=== PATIENT | female | born 1960 | race Caucasian/White ===

== ENCOUNTER 2024-09-08 22:00 | Emergency (ER) | payer OTHER, SELFPAY ==
[2024-09-08 22:24] VITALS: BP 180/88; PULSE 85; RESP 20; TEMP 36.6; O2SAT 94
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
--- OUTSIDE RECORDS SUMMARY | 2024-09-08 23:53 | XMS_ITS | Clinical Summary ---
Author Organization [facility] [address] [place] [address] Care Team Providers Care Family Consumer Scientist Name Role Phone Lara Martínez NP Primary Care Provider [phone]- [phone] Allergies No known active allergies Medications clobetasoL (TEMOVATE) 0.05 % ointmentIndicat ions:Arthropod bite, initial encounter Apply topically 2 (two) times a day as needed (for itchy bites) 15 g 1 Active cyclobenzaprine (FLEXERIL) 10 mg tablet Take 1 tablet (10 mg total) by mouth 2 (two) times a day as needed for muscle spasms 20 tablet 4 Active naproxen (NAPROSYN) 500 mg tablet Take 1 tablet (500 mg total) by mouth 2 (two) times a day with meals 30 tablet 4 Active Active Problems No known active problems Social History Tobacco Use Types Packs/Day Years Used Date Smoking Tobacco: Every Day Smokeless Tobacco: Never Personal Safety Answer Date Recorded Have you ever been in or are you currently in a harmful physical or emotional relationship or is someone making you feel afraid or unsafe? 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 Gender Identity Female 09/05/2020 12:06 PM CDT Sexual Orientation Not on file Obstetrics History Last Filed Vital Signs Vital Sign Reading Time Taken Comments Blood Pressure 157/99 01/28/2024 11:47 AM CDT Pulse 63 01/28/2024 11:47 AM CDT Temperature 36.6 C (97.8 F) 01/28/2024 9:44 AM CDT Respiratory Rate 18 01/28/2024 11:47 AM CDT Oxygen Saturation 100% 01/28/2024 9:44 AM CDT Inhaled Oxygen Concentration - - Weight 73.5 kg (162 lb) 01/28/2024 9:44 AM CDT Height 162.6 cm (5' 4) 07/05/2018 10:30 AM CDT Body Mass Index 27.81 07/05/2018 10:30 AM CDT Plan of Treatment Health Maintenance Due Date Last Done Comments Breast Cancer Screening-Mammogram 1958 Colon Cancer Screening-Colonoscopy 1958 Depression Screening 1958 Fall Risk Assessment 1958 Hepatitis C Screening 1958 Osteoporosis Screening-Bone Density Scan 1958 DTaP/Tdap/Td Vaccine (1 - Tdap) 1969 Hepatitis B Screening 1976 Pneumococcal vaccine 65+ (1 of 2 - PCV) 1977 Zoster Vaccine (1 of 2) 2008 Well Visit 65+ 08/17/2023 Influenza Vaccine Completed 02/08/2024, , 01/14/2016 Insurance [facility] [employer] MEDICARE G[facility] [employer] MEDICARE GOLD Care Teams Family Consumer Scientist Relationship Specialty Start Date End Date Lara Martínez NP [address] [place] [id number] PCP - General Family Medicine 01/28/24
--- OUTSIDE RECORDS SUMMARY | 2024-09-08 23:53 | XMS_ITS | Referral Summary ---
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
--- OUTSIDE RECORDS SUMMARY | 2024-09-08 23:53 | XMS_ITS | Clinical Summary ---
Author Organization [facility] Address [address] [place] [address] Care Team Providers Care Merchandise Presentation Associate Name Role Phone Kerry Llanos PA-C Primary Care Provider [phone]- [phone] Source Comments [facility],non-owned Affiliates and Associated Physician Practices is amultiple site organization consisting of ambulatory clinics and hospital sitesin [place], [place], [place] and [place]. This disclosure is being madepursuant to the Care Everywhere program and may not contain all information available regarding this patient. Last updated 18.[facility] Allergies No known active allergies Medications * Be aware that medications may not be up to date on this document. Alwaysverify current medications with the patient. atenolol (Tenormin) 50 MG tablet Take 50 mg by mouth once daily 09/20/2021 Active lisinopril (Prinivil; Zestril) 10 MG tablet Take 10 mg by mouth once daily 09/30/2021 Active ALPRAZolam (Xanax) 0.5 MG tablet Take 0.5 mg by mouth once daily as needed 09/16/2021 Active nortriptyline (Pamelor) 10 MG capsuleIndicatio ns:Chronic tension-type headache, not intractable Take 1 (one) capsule by mouth at bedtime 90 capsule 3 11/18/2021 Active atenolol-chlorth alidone (Tenoretic 50) 50-25 MG tablet Acti ve lisinopril (Prinivil; Zestril) 20 MG tablet Take 20 mg by mouth once daily 11/11/2021 Active Active Problems Problem Noted Date Diagnosed Date Depressive disorder 05/16/2019 Insomnia 12/16/2018 Anxiety 11/04/2018 Arthritis 11/04/2018 Essential hypertension 11/04/2018 Heart murmur 11/04/2018 Nicotine dependence 11/04/2018 Immunizations Immunization Administration Dates Next Due INFLUENZA VACCINE, QUADR. (F LUZONE; FLULAVAL; FLUARIX; AFLURIA QUADRIVALENT; 6MO+), 0.5 ML (IIV4) 01/17/2019 Social History Tobacco Use Types Packs/Day Years Used Date Smoking Tobacco: Every Day Smokeless Tobacco: Never Alcohol Use Standard Drinks/Week Comments Never 0 (1 standard drink = 0.6 oz pur e alcohol) Comments Unknown Sex and Gender Information Value Date Recorded Sex Assigned at Not on file Legal Sex Female 9:51 AM CDT Gender Identity Not on file Sexual Orientation Not on file Last Filed Vital Signs Vital Sign Reading Time Taken Comments Blood Pressure 145/87 01/20/2022 7:45 AM CDT Pulse 71 01/20/2022 7:45 AM CDT Temperature 35.8 C (96.5 F) 01/20/2022 7:45 AM CDT Respiratory Rate - - Oxygen Saturation 97% 01/20/2022 7:45 AM CDT Inhaled Oxygen Concentration - - Weight 68 kg (150 lb) 01/20/2022 7:45 AM CDT Height 162.6 cm (5' 4) 01/20/2022 7:45 AM CDT Body Mass Index 25.75 01/20/2022 7:45 AM CDT Plan of Treatment Health Maintenance Due Date Last Done Comments BONE DENSITY TESTING 1960 COLOGUARD (AGES 45-75) - COL ON CA SCREENING 1958 COLON MONITORING 1958 COLONOSCOPY - COLON CA SCREENING 1958 CT COLONOGRAPHY - COLON CA SCREENING 1958 Colorectal Cancer Screening 1958 FIT - COLON CA SCREENING 1958 FLEX SIG - COLON CA SCREENING 1958 LIPID TESTING 1958 MAMMOGRAM 1958 HEPATITIS C SCREENING 08/11/1976 DTAP/TDAP/TD VACCINES (1 - Tdap) 1977 PNEUMOCOCCAL VACCINE 50+ (1 of 2 - PCV) 1977 ZOSTER VACCINE (1 of 2) 2008 SCREENING FOR DIABETES 11/18/2021 COVID-19 VACCINE ( - 2023-2 5 season) 2023 DEPRESSION SCREENING 04/13/2024 INFLUENZA VACCINE (Season Ended) 2024 01/18/20 Respiratory Syncytial Virus (RSV) Vaccine Pt: or over 60 yrs (1 - 1-dose 75+ series) 2033 HEPATITIS B VACCINE Aged Out No longe r eligible based on patient's age to complete this topic HIB VACCINE Aged Out No longer eligi ble based on patient's age to complete this topic HPV VACCINE Aged Out No longer eligi ble based on patient's age to complete this topic MENINGOCOCCAL (Group B) VACC INE SHARED DECISION-MAKING Aged Out No longer eligibl e based on patient's age to complete this topic MENINGOCOCCAL GROUPS A/C/Y/W VACCINE Aged Out No longer eligible b ased on patient's age to complete this topic Insurance [facility] Care Teams Merchandise Presentation Associate Relationship Specialty Start Date End Date Kerry Llanos PA-C [address] [place] [address] PCP - General 10/22/21
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
--- OUTSIDE RECORDS SUMMARY | 2024-09-08 23:54 | XMS_ITS | Data Portability ---
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 Plan of Treatment Reminders Order Date Submit Date Provider Last Modified By Organization Details Last Modified Time Details Appointments NURSE VISIT 15 2024 01:15P M DIPC_Nurs e Not available Not available Not available EST 30 2024 02:00P M Roman Carroll PA Not available Not available Not available Lab CMP, serum or plasma 2024 025 [facility], [address], [place], [address], 09/08/2024 05:45:45 CBC w/ auto diff 2024 025 [facility], [address], [place], [address], 09/08/2024 05:45:46 vitamin D, 25-hydrox y, total, serum 2024 025 [facility], [address], [place], [address], 09/08/2024 05:45:45 lipid panel, serum 2024 025 [facility], [address], [place], [address], 09/08/2024 05:45:44 hepatic function panel, serum 2024 025 [facility], [address], [place], [address], 09/07/2024 04:07:22 Referral None recorded. Procedures None recorded. Surgeries None recorded. Imaging US, kidney 2024 025 [facility], [address] [facility], [facility] [address], [place], [address], 08/26/2024 16:23:22 MAMMO, screening , bilateral 2024 025 [facility], [address] [facility], [facility] [address], [place], [address], 08/26/2024 16:27:48 LDCT, chest, for lung cancer screening [email or web address] (Central Scheduling), [address] [place], [address], 08/19/2024 11:02:12 Medication Orders Medrol ([place]) 4 mg tablets in a dose pack 2024 025 [id number], [address] [place], [address], 2024 14:54:57 methocarb ronny 500 mg tablet 2024 025 [id number], [address], [place], [address], 2024 14:56:02 losartan 100 mg tablet 2024 025 [id number], [address] [place], [address], 08/11/2024 00:15:29 alprazola m 0.5 mg tablet 2024 025 [id number], [address], [place], [address], 05/17/2024 14:39:22 sertralin e 50 mg tablet 2024 025 [id number], [address], [place], [address], 05/17/2024 14:39:20 Patient TargetsNo targets recorded. Patient Instructions Encounter Date Encounter Id Patient Instructions Last Modified By Organization Details Last Modified Time 05/17/2024 [id number] dash diet: care instructions Not available 05/17/2024 15:31:39 high blood pressure: care instructions Not available 05/17/2024 15:31:39 learning about high blood pressure Not available 05/17/2024 15:31:39 low sodium diet (2,000 milligram): care instructions Not available 05/17/2024 15:31:39 Reason for Referral None Reported. Results Created Date Observation Date Name Description Value Unit Range Abnormal Flag Note LastModifiedBy Organization Detail LastModifiedTime 09/08/1909/08/2024 LIPID PANEL , STAND CHAN cholesterol, total 172 mg/dL <200 normal Not Available [facility] [address], [address], 09/08/2024 05:45:44 09/08/19 25 09/08/2024 LIPID PANEL , STAND CHAN HDL cholesterol 60 mg/dL > or = 50 normal Not Available [facility] [address] [place], [place] [address], [address], 09/08/2024 05:45:44 09/08/19 25 09/08/2024 LIPID PANEL , STAND CHAN triglyceride s 109 mg/dL <150 normal Not Available [facility] [address] [place], [place] [address], [address], 09/08/2024 05:45:44 09/08/19 25 09/08/2024 LIPID PANEL , STAND CHAN LDL-choleste rol 91 mg/dL _(yessi c) normal Refer ence range : <100 Tr able range <100 mg/dL for prima ry preve ntion ; <70 mg/dL for patie nts with CHD or diabe tic patie nts with > or = 2 CHD risk facto rs. LDL-C is now calcu lated using the Maalthi n-Hop kins calcu guille n, which is a valid ated novel metho d provi ding fabienne r accur acy than the Fried tiffany equat ion in the estim ation of LDL-C . Malathi morrow SS et al. BONY. 2013; 310(1 9): 2061- 2068 (http ://ed ucati on.Qu Teal Orbit. com/f aq/FA Q164) Not Available [facility] [address] [address] [place], [address], 09/08/2024 05:45:44 09/08/1909/08/2024 LIPID PANEL , STAND CHAN chol/HDLC ratio 2.9 (calc ) <5.0 normal Not Available [facility] [address] [address] [place], [address], 09/08/2024 05:45:44 09/08/1909/08/2024 LIPID PANEL , STAND CHAN non HDL cholesterol 112 mg/dL _(yessi c) <130 normal For patie nts with diabe heriberto plus 1 major ASCVD risk facto r, treat ing to a non-H DL-C goal of <100 mg/dL (LDL- C of <70 mg/dL ) is consi dered a thera peuti c optio n. Not Available [facility] [address] [address] [address] , [place], [address], 09/08/2024 05:45:44 09/08/1909/08/2024 COMPR EHENS KAYE METAB OLIC PANEL glucose 85 mg/dL 65-99 normal Fasti ng refer ence inter ronel Not Available [facility] [address] [address] [place], [address], 09/08/2024 05:45:45 09/08/192025 COMPR EHENS KAYE METAB OLIC PANEL urea nitrogen (BUN) 20 mg/dL 7-25 normal Not Available [address], [address], 09/08/2024 05:45:45 09/08/19 25 09/08/2024 COMPR EHENS KAYE METAB OLIC PANEL creatinine 1.11 mg/dL 0.50-1 .05 high Not Available [address], [address], 09/08/2024 05:45:45 09/08/19 25 09/08/2024 COMPR EHENS KAYE METAB OLIC PANEL eGFR 55 mL/mi n/1.7 3m2 > or = 60 low Not Available [address], [address], 09/08/2024 05:45:45 09/08/19 25 09/08/2024 COMPR EHENS KAYE METAB OLIC PANEL BUN/creatini ne ratio 18 (calc ) 6-22 normal Not Available [address], [address], 09/08/2024 05:45:45 09/08/19 25 09/08/2024 COMPR EHENS KAYE METAB OLIC PANEL sodium 139 mmol/ L 135-14 6 normal Not Available [address], [address], 09/08/2024 05:45:45 09/08/19 25 09/08/2024 COMPR EHENS KAYE METAB OLIC PANEL potassium 4.2 mmol/ L 3.5-5. 3 normal Not Available [address], [address], 09/08/2024 05:45:45 09/08/19 25 09/08/2024 COMPR EHENS KAYE METAB OLIC PANEL chloride 103 mmol/ L 98-110 normal Not Available [address] [place], [address], 09/08/2024 05:45:45 09/08/19 25 09/08/2024 COMPR EHENS KAYE METAB OLIC PANEL carbon dioxide 26 mmol/ L 20-32 normal Not Available [address], [address], 09/08/2024 05:45:45 09/08/19 25 09/08/2024 COMPR EHENS KAYE METAB OLIC PANEL calcium 9.1 mg/dL 8.6-10 .4 normal Not Available [address], [address], 09/08/2024 05:45:45 09/08/19 25 09/08/2024 COMPR EHENS KAYE METAB OLIC PANEL protein, total 7.0 g/dL 6.1-8. 1 normal Not Available [address], [address], 09/08/2024 05:45:45 09/08/19 25 09/08/2024 COMPR EHENS KAYE METAB OLIC PANEL albumin 4.1 g/dL 3.6-5. 1 normal Not Available [address], [address], 09/08/2024 05:45:45 09/08/19 25 09/08/2024 COMPR EHENS KAYE METAB OLIC PANEL globulin 2.9 g/dL_ (calc ) 1.9-3. 7 normal Not Available [address], [address], 09/08/2024 05:45:45 09/08/19 25 09/08/2024 COMPR EHENS KAYE METAB OLIC PANEL albumin/glob ulin ratio 1.4 (calc ) 1.0-2. 5 normal Not Available [address], [address], 09/08/2024 05:45:45 09/08/1909/08/2024 COMPR EHENS KAYE METAB OLIC PANEL bilirubin, total 0.6 mg/dL 0.2-1. 2 normal Not Available [place] [address] [address] [place], [address], 09/08/2024 05:45:45 09/08/1909/08/2024 COMPR EHENS KAYE METAB OLIC PANEL alkaline phosphatase 99 U/L 37-153 normal Not Available [facility] [address] [address] [place], [address], 09/08/2024 05:45:45 09/08/1909/08/2024 COMPR EHENS KAYE METAB OLIC PANEL AST 13 U/L 10-35 normal Not Available [address] [address] [place], [address], 09/08/2024 05:45:45 09/08/1909/08/2024 COMPR EHENS KAYE METAB OLIC PANEL ALT 8 U/L 6-29 normal Not Available [address] [address] [place], [address], 09/08/2024 05:45:45 09/08/1909/08/2024 VITAM IN D,25- OH,TO NIKKI,I A vitamin D,25-oh,tota l,ia 20 NG/mL 30-100 low Vitam in D Statu s 25-OH Vitam in D: Defic iency : <20 ng/mL Insuf ficie ncy: 20 - 29 ng/mL Optim al: > or = 30 ng/mL For 25-OH Vitam in D testi ng on patie nts on D2-alcala pplem entat ion and patie nts for whom quant itati on of D2 and D3 fract ions is requi red, the [facility] Ass[employer] eD(TM ) 25-OH VIT D, (D2,D 3), LC/MS /MS is recom ulca d: order code 62690 (gloria ents >2yrs ). See Note 1 Note 1 For addit ional infor jenny matthews e refer to http: //bala Wren gnost ics.c om/fa q/FAQ 199 (This link is being provi ded for infor michael neely/ isabella fragosoo ses only. ) Not Available [address], [address], 09/08/2024 05:45:45 09/08/1909/08/2024 CBC (INCL UDES DIFF/ PLT) white blood cell count 6.6 thous and/u L 3.8-10 .8 normal Not Available [address], [address], 09/08/2024 05:45:45 09/08/1909/08/2024 CBC (INCL UDES DIFF/ PLT) red blood cell count 4.87 caterina on/uL 3.80-5 .10 normal Not Available [address], [address], 09/08/2024 05:45:45 09/08/19 25 09/08/2024 CBC (INCL UDES DIFF/ PLT) hemoglobin 14.6 g/dL 11.7-1 5.5 normal Not Available [address], [address], 09/08/2024 05:45:45 09/08/1909/08/2024 CBC (INCL UDES DIFF/ PLT) hematocrit 44.7 % 35.0-4 5.0 normal Not Available [address], [address], 09/08/2024 05:45:45 09/08/19 25 09/08/2024 CBC (INCL UDES DIFF/ PLT) MCV 91.8 fL 80.0-1 00.0 normal Not Available [address], [address], 09/08/2024 05:45:45 09/08/1909/08/2024 CBC (INCL UDES DIFF/ PLT) MCH 30.0 pg 27.0-3 3.0 normal Not Available [address], [address], 09/08/2024 05:45:45 09/08/19 25 09/08/2024 CBC (INCL UDES DIFF/ PLT) MCHC 32.7 g/dL 32.0-3 6.0 normal For adult s, a sligh t decre ase in the calcu lated MCHC value (in the range of 30 to 32 g/dL) is most likel y not clini michela signi eliezer t; rashi er, it shoul d be inter prete d with cauti on in [facility] with other red cell shar eters and the patie nt's clini yessi condi tion. Not Available [address], [address], 09/08/2024 05:45:45 09/08/1909/08/2024 CBC (INCL UDES DIFF/ PLT) RDW 13.3 % 11.0-1 5.0 normal Not Available [address], [address], 09/08/2024 05:45:45 09/08/1909/08/2024 CBC (INCL UDES DIFF/ PLT) platelet count 240 thous and/u L 140-40 0 normal Not Available [address], [address], 09/08/2024 05:45:45 09/08/19 25 09/08/2024 CBC (INCL UDES DIFF/ PLT) MPV 9.3 fL 7.5-12 .5 normal Not Available [address], [address], 09/08/2024 05:45:45 09/08/1909/08/2024 CBC (INCL UDES DIFF/ PLT) absolute neutrophils 3656 cells /uL 1500-7 800 normal Not Available [address], [address], 09/08/2024 05:45:45 09/08/1909/08/2024 CBC (INCL UDES DIFF/ PLT) absolute lymphocytes 1927 cells /uL 850-39 00 normal Not Available [address], [address], 09/08/2024 05:45:45 09/08/1909/08/2024 CBC (INCL UDES DIFF/ PLT) absolute monocytes 515 cells /uL 200-95 0 normal Not Available [address], [address], 09/08/2024 05:45:45 09/08/1909/08/2024 CBC (INCL UDES DIFF/ PLT) absolute eosinophils 449 cells /uL 15-500 normal Not Available [address], [address], 09/08/2024 05:45:45 09/08/1909/08/2024 CBC (INCL UDES DIFF/ PLT) absolute basophils 53 cells /uL 0-200 normal Not Available [address], [address], 09/08/2024 05:45:45 09/08/1909/08/2024 CBC (INCL UDES DIFF/ PLT) neutrophils 55.4 % normal Not Available [address], [address], 09/08/2024 05:45:45 09/08/1909/08/2024 CBC (INCL UDES DIFF/ PLT) lymphocytes 29.2 % normal Not Available [address], [address], 09/08/2024 05:45:45 09/08/1909/08/2024 CBC (INCL UDES DIFF/ PLT) monocytes 7.8 % normal Not Available [facility] [place] [address] [place], [address], 09/08/2024 05:45:45 09/08/19 25 09/08/2024 CBC (INCL UDES DIFF/ PLT) eosinophils 6.8 % normal Not Available [facility] [address] [place] [address] [place], [address], 09/08/2024 05:45:45 09/08/19 25 09/08/2024 CBC (INCL UDES DIFF/ PLT) basophils 0.8 % normal Not Available [facility] [address] [address] [place], [address], 09/08/2024 05:45:45 08/12/19 25 08/10/2024 US, echoc ardio gram, trans thora cic, compl ete, w/ color flow No observ ation record ed. [email or web address] Roman Carroll PA-C [address], [address], 08/11/2024 11:55:01 08/27/19 25 08/26/2024 MAMMO , scree mat, bilat eral No observ ation record ed. [email or web address] [place], [address], 08/30/2024 16:27:52 08/27/19 25 08/26/2024 US, khadra fleming No observ ation record ed. [email or web address] [place], [address], 08/30/2024 16:27:52 Result Notes None recorded. Problems Name Problem SNOMED Code Status Onset Date Resolution Date Notes Provider Name and Address Organization Details Recorded Time Smoker 65113294 Active 2022 Kerry Haq LPN [facility] 11:09:14 Chronic obstructi ve pulmonary disease 67428417 Active 2022 Lara Cantu NP [address] [facility],[address], [place], [address] , [facility] 3 13:28:30 Gastroeso phageal reflux disease without esophagit is 698460299 Active 2022 Lara Cantu NP [address] [facility],[address], [place], [address] , [facility] 4 16:34:59 Left ventricul ar diastolic dysfuncti on 938218182 Active 2023 Follows Cardio Lara Cantu NP [address], [place], [address] , [facility] 4 16:34:44 Osteoporo sis 47466355 Active 2023 Lara Cantu NP [address], [place], [address] , [facility] 4 13:16:17 Small vessel cerebrova scular disease 358839720 Active 2023 Referred to Neuro Lara Cantu NP [address], [place], [address] , [facility] 4 21:11:22 Renal mass 235953374 Active 2023 Lara Cantu NP [address], [place], [address] , [facility] 4 14:07:13 Prolapsed lumbar intervert ebral disc 726316539 Active 2023 Lara Cantu NP [address], [place], [address] , [facility] 5 14:23:03 Mixed hyperlipi demia 378779842 Active 2024 Lara Cantu NP [address] [facility],[address], [place], [address] , [facility] 5 14:22:52 Disorder of left sciatic nerve 96200130402 9100 Active 2024 Lara Cantu NP [address], [place], [address] , [facility] 5 14:54:17 Tobacco dependenc e caused by cigarette s 74480487756 181526 Active 2024 Janiya nguyen, [facility] 5 10:55:04 Insomnia 216642499 Active 2018 Lara Cantu NP [address], [place], [address] , [facility] 3 14:02:38 Vitamin D deficienc y 50782389 Active 2021 Lara Cantu NP [address], [place], [address] , [facility] 3 14:02:43 Arthritis 7036947 Active 2018 Lara Cantu NP [address], [place], [address] , [facility] 3 14:02:32 Anxiety 41524892 Active 2018 Lara Cantu NP [address] [place] [address], [place], [address] , [facility] 3 14:01:59 Essential hypertens ion 75452457 Active 2018 Martina nguyen, [facility] 5 12:18:34 Chronic depressio n 983901519 Active 2020 Lara Cantu NP [address], [place], [address] , [facility] 3 14:01:57 Notes:Dx w/CHF in 2000 [facility]. No problem since. Problem Notes Documentation Provider Name and Address Organization Details Recorded Time Utility Accounts Director Consult Note : [address] [address]QKSJ, Vickie (id #[id number], : 1960) [facility] [address] [address] Encounter Summary - Progress Note Date Printed: 08/10/2024 Documents sent via fax will include the followingmessage: This fax may contain sensitive and confidential personal health information that is being sent for the sole use of the intended recipient. Unintended recipients are directed to securely destroy any materials received. You are hereby notified that the unauthorized disclosure or other unlawful use of this fax or any personal health information is prohibited. To the extent patient information contained in this fax is subject to 42 CFR Part 2, this regulation prohibits unauthorized disclosure of these records. If you received this fax in error, please visit [email or web address] to notify the sender and confirm that the information will be destroyed. If you do not have internet access, please call to notify the sender and confirm that the information will be destroyed. Thank you for your attention and cooperation. [ID:[id number]] Patient Irene Cason (63yo, F) #[id number] 1960 Patient Demographics: Address [address] [place] [address] Work Phone Encounter Notes: Encounter Reason/Date 1 year follow up, f/u after ECHO 08/10/2024 - 03:00PM - [facility] [place] History of Present IllnessIrene is a very pleasant 63 y/o WF with history of HTN, hyperlipidemia, tobacco use, GERD and a family history of heart disease, who returns to the office today for annual visit and a scheduled echocardiogram. She feels well and denies chest pain, SOB, dizziness, pre-syncope, pedal edema or claudication symptoms. Review of Systems Patient reports no chest pressure, no lightheadedness, no chest pain, no dyspnea on exertion, no fatigue, no leg edema, no syncope, no orthopnea, no palpitations, no PND, no shortness of breath, and no claudication. Vitals BP: 160/90 sitting R arm08/10/2024 03:00 pm BMI: 25. 02:46 pm HR: 70008/10/2024 02:59 pm Ht: 5 ft 4.5 in (163.83 cm)08/10/2024 02:42 pm O2Sat: 97% Room Air at Rest08/10/2024 02:59 pm RR: 17008/10/2024 02:59 pm T: 97.1 F temporal artery (36.17 C)08/10/2024 02:59 pm Wt: 149 lbs With clothes (67.59 kg)08/10/2024 02:46 pm Results/InterpretationsNone recorded Physical ExamConstitutional:General Appearance: well-nourished and well-developed. Level of Distress: no acute distress. Psychiatric:Mental Status: alert and normal affect. Orientation: to time, place, and person. Insight: good insight. Eyes:Lids and Conjunctivae: no discharge, pallor, xanthelasma, or arcus senilis and non-injected and anicteric. ENMT:Lips, Teeth, and Gums: normal dentition and moist oral mucosa. Ears: no lesions on external ear. Nose: no lesions on external nose and nares patent. Oropharynx: no cyanosis or pallor. Neck:Neck: supple, trachea midline, no masses, and full range of motion. Carotid Arteries: no bruits or thrills and bilateral normal upstroke. Jugular Veins: normal jugular venous pressure and Kussmaul's sign absent. Cervical Lymph Nodes: non tender or not enlarged. Thyroid: not enlarged. Lungs:Respiratory Effort: unlabored. Chest Exam: no thoracic deformity or chest wall tenderness and normal curvature. Auscultation: no wheezes, rales, or rhonchi and clear to auscultation bilaterally. Cardiovascular:Precordial Exam: no heaves or precordial thrills and non displaced point of maximal impulse. Rate And Rhythm: regular. Heart Sounds: normal S1 and S2; no rub, gallop, or click; and physiologically split S2. Systolic Murmur: not heard. Diastolic Murmur: not heard. Extremities: no cyanosis, edema, or peripheral signs of emboli. Abdomen:Inspection and Palpation: non distended or tender and soft and no masses. Liver: non tender or no hepatomegaly. Spleen: non tender or no splenomegaly. Musculoskeletal:Inspection: no joint tenderness or swelling and no erythema. Neurologic:Gait: normal gait. Motor: normal strength and tone. Sensation no lateralizing focal sensory or motor deficits and normal speech. Skin:Inspection and Palpation: warm and dry. Nails: no clubbing or splinter hemorrhages. Assessment and Plan1. Essential hypertension-Her BP is elevated again today. Meds were reviewed. I recommend increasing losartan to 100mg daily and continuing the atenolol 50mg daily. Her echo did not suggest evidence of LVH. She will continue home monitoring her BP at home and report persistent abnormal readings. She has a follow up soon with Lara. We will regroup in November to discuss her regimen and readings.I10: Essential (primary) hypertension losartan 100 mg tablet - Take 1 tablet(s) every day by oral route. Qty: (90) tablet Refills: 3 Pharmacy: [facility][id number] Note to Pharmacy: Replacing 50mg dose. 2.Mixed hyperlipidemiaHer LDL was previously elevated. She is managed with dietary discretion. Recommend follow up liver and lipid panel. She is seeing Lara soon. I suggested she wait until after that appointment as Lara would likely add to her lab orders, and she could have them all drawn at once.E78.2: Mixed hyperlipidemia LIPID PANEL, STANDARD HEPATIC FUNCTION PANEL 3. Intermittent palpitations-Intermittent palpitations have resolved. Her previous holter was reviewed. No concerning arrhythmias.R00.2: Palpitations 4. Dyspnea on exertion-Previous LDCT was negative and did not reveal evidence of coronary calcification.R06.09: Other forms of dyspnea 5. Family history of Cardiovascular disease-Mother developed CAD age 40's to 50's, Father with COPD, Brother with cancer and cirrhosis. Anticipate repeat MPI study at some point.Z82.49: Family history of ischemic heart disease and other diseases of the circulatory system 6. Gastroesophageal reflux disease-Stable on pantoprazole 40mg daily.K21.9: Gastro-esophageal reflux disease without esophagitis 7.SmokerDiscussed benefits of quitting smoking. Cessation was encouraged.F17.200: Nicotine dependence, unspecified, uncomplicated 8.BMI 25.0-25.9,adultBmi 25 Recommended weight loss to achieve & maintain WNL BMI by focusing on increasing water intake, exercise regularly, limit fatty, fried, salty/sodium, & processed foods, increase intake of fresh produce, f/u with pcp.Z68.25: Body mass index [BMI] 25.0-25.9, adult Return to Office Roman LAND for EST 30 at [facility]P_ [facility] [place] on 11/14/2024 at 02:00 PM Patient Medical History: Allergies List Reviewed Allergies HYDROCHLOROTHIAZIDE: Hives Medications Reviewed Medications NameDate Source albuterol sulfate HFA 90 mcg/actuation aerosol inhalerInhale 2 puff(s) every 4 hours by inhalation route as needed.04/03/24 filled surescripts alendronate 70 mg tabletTAKE 1 TABLET BY MOUTH EVERY WEEK01/10/24 filled surescripts ALPRAZolam 0.5 mg tabletTAKE 1 TABLET BY MOUTH EVERY DAY JJWWEQ37/04/25 filled surescripts aspirin 81 mg tablet,delayed releaseTake 1 tablet(s) every day by oral route.03/13/23 entered Brooklyn Loera atenoloL 50 mg tabletTAKE 1 TABLET BY MOUTH EVERY DAY07/03/24 filled surescripts Breztri Aerosphere 160 mcg-9mcg-4.8mcg/actuation HFA aerosol inhalerINHALE 2 PUFFS TWICE A DAY08/18/23 filled surescripts cetirizine 10 mg tabletTAKE 1 TABLET BY MOUTH EVERY DAY05/26/24 filled surescripts fluticasone propionate 50 mcg/actuation nasal spray,suspensionONE SPRAY IN EACH NOSTRIL EVERY NIGHT BEFORE BED.05/26/24 filled surescripts ketorolac 0.5 % eye dropsINSTILL 1 DROP INTO RIGHT EYE 4 TIMES DAILY STARTING AFTER SURGERY AND CONTINUE FOR 4 WEEKS07/06/24 filled surescripts losartan 100 mg tabletTake 1 tablet(s) every day by oral route.08/10/24 prescribed Roman LAND losartan 50 mg tabletTAKE 1 TABLET BY MOUTH EVERY DAY06/07/24 filled surescripts loteprednol etabonate 0.5 % eye gel dropsINSTILL 1 DROP INTO RIGHT EYE TWICE DAILY STARTING 4 HOURS AFTER SURGERY AND CONTINUE FOR 4 WEEKS07/06/24 filled surescripts ofloxacin 0.3 % eye dropsINSTILL 1 DROP IN RIGHT EYE 4 TIMES DAILY STARTING AFTER SURGERY AND CONTINUE FOR 1 WEEK07/06/24 filled surescripts pantoprazole 40 mg tablet,delayed releaseTAKE 1 TABLET BY MOUTH EVERY DAY12/16/23 filled surescripts Refresh Classic (PF) 1.4 %-0.6 % eye drops in a fpdwsgjeedg07/30/25 entered Kerry Haq [employer] sertraline 50 mg tabletTAKE 1 TABLET BY MOUTH EVERY DAY05/17/24 filled surescripts Meds UTD 07/25/22 Family HistoryReviewed Family History Father - Hypertensive disorder - Dementia - Pulmonary emphysema - Pneumonia ( age: 86) Mother - Hypertensive disorder - Heart disease Brother - Malignant tumor of kidney - Mesothelioma (malignant, clinical disorder) - Malignant tumor of kidney - Mesothelioma (malignant, clinical disorder) - Malignant tumor of kidney - Mesothelioma (malignant, clinical disorder) Past Medical HistoryReviewed Past Medical History ANXIETY DISORDER:Y ARTHRITIS:Y COPD:Y DEPRESSION (INCLUDING POST ):Y GERD/NAUSEA:Y HEART DISEASE:Y-LVDD HYPERTENSION:Y INSOMNIA:Y SLEEP DISORDER:Y Vaccine HistoryReviewed Vaccines Vaccine Type Date Amt. Route Site [facility] Lot # [id number]. Exp. Date VIS VIS Given Roller Engraver Hepatitis A Hep A 05/13/24 Z27PB Hep A, adult 09/24/23 Influenza influenza, high dose seasonal 02/08/24 0.5 mL Intramuscular Deltoid, Left [id number] Sanofi Pasteur 09/11/24 Inactivated Influenza 11/16/2020 02/08/24 Brooklyn Loera influenza, injectable, quadrivalent, preservative free 01/17/19 0.5 mL Intramuscular Deltoid, Left [id number] [employer] 08/31/19 11/25/2018 01/17/19 [email or web address] Pneumococcal Pneumococcal conjugate PCV20, polysaccharide [id number] conjugate, adjuvant, PF 08/17/23 0.5 mL Intramuscular Deltoid, Left [id number] Pfizer, Inc 09/10/24 Pneumococcal Conjugate 08/22/2022 08/17/23 Nevaeh Coppola last tdap unknown Electronically Signed by: MARTIN BLANCA Lara Catnu, JERRY [address], [place], [address], [facility] 08/11/2024 14:02:43 Procedures Surgical History Date Name Laterality Status Provider Name and Address Organization Details Recorded Time 08/09/19 25 Cataract Surgery completed Kerry Haq LPN [facility] 08/10/2024 15:58:00 07/26/19 25 Cataract Surgery completed Kerry Haq LPN [facility] 08/10/2024 15:57:55 02/08/20 24 Medicare Wellness CPT, welcome completed Lara Cantu NP [address], [place], [address], [facility] 01/11/2024 10:55:11 08/24/19 24 Most Recent Bone Density completed Lara Cantu NP [address], [place], [address], [facility] 08/25/2023 13:16:31 02/18/20 23 Date of Last Mammogram completed Lara Cantu NP [address], [place], [address], [facility] 08/17/2023 12:02:22 12/17/19 01 Hysterectomy completed Not Available [facility] 023 02:24:13 04/13/19 thoracentesis completed Not Available [facility] 2022 02:24:13 section completed Not Available [facility] 04/20/2022 02:24:13 tonsillectomy and adenoidectomy completed Not Available [facility] 04/20/2022 02:24:13 removal of mole of skin by excision completed Not Available [facility] 04/20/2022 02:24:13 Imaging Results None recorded. Procedure Notes None recorded. Medical Equipment None Reported. Allergies Allergen ID Allergen Name Allergen Category Reaction Reaction Severity Criticality Documentation Date Start Date Code Code System Note Provider Name and Address Organization Details Recorded Time [id number] hydrochlo rothiazid e medicatio n hives Not available Not available 04/20/2022 5487 RxNorm Not Available [facility] 3 02:27:24 Medications Name Sig Start Date Stop Date Status Note LastModified by Organization Details LastModified Time losartan 50 mg tablet TAKE 1 TABLET BY MOUTH EVERY DAY 08/16 completed Not Available Not Available Not Available cyclobenzap rine 10 mg tablet TAKE 1 TAB BY MOUTH TWO TIMES DIALY NEEDED FOR MUSCLE SPASMS 05/17 completed Not Available Not Available Not Available methocarbam ol 500 mg tablet TAKE 2 TABLETS 3 TIMES A DAY BY ORAL ROUTE NEEDED FOR 7 DAYS. active Not Available Not Available No t Available venlafaxine ER 37.5 mg capsule,ext ended release 24 hr TK 1 C PO QD 10/09 completed Not Available Not Available Not Available trazodone 50 mg tablet TK 1 T PO 30 MINUTES BEFORE BEDTIME 10/09 completed Not Available Not Available Not Available cetirizine 10 mg tablet TAKE 1 TABLET BY MOUTH EVERY DAY active Not Available Not Available No t Available azithromyci n 250 mg tablet TAKE 2 TABLETS (500 MG) BY ORAL ROUTE ONCE DAILY FOR 1 DAY THEN 1 TABLET (250 MG) BY ORAL ROUTE ONCE DAILY FOR 4 DAYS 06/13 completed Not Available Not Available Not Available ofloxacin 0.3 % eye drops INSTILL 1 DROP IN RIGHT EYE 4 TIMES DAILY STARTING AFTER SURGERY AND CONTINUE FOR 1 WEEK active Not Available Not Available No t Available benzonatate 200 mg capsule Take 1 capsule 3 times a day by oral route as needed for 7 days. 05/17 completed Not Available Not Available Not Available hydrocodone 5 mg-acetamin ophen 325 mg tablet TAKE 1 TABLET BY MOUTH EVERY 6 HOURS NEEDED FOR 7 DAYS 05/17 completed Not Available Not Available Not Available lisinopril 20 mg tablet Take 1 tablet every day by oral route. 07/25 completed Not Available Not Available Not Available prednisone 20 mg tablet TAKE 2 TABLETS BY MOUTH EVERY DAY FOR 5 DAYS active Not Available Not Available No t Available alendronate 70 mg tablet TAKE 1 TABLET BY MOUTH EVERY WEEK active Not Available Not Available No t Available atenolol 50 mg-chlortha lidone 25 mg tablet TK 1 T PO QD 04/18 completed Not Available Not Available Not Available sulfamethox azole 800 mg-trimetho prim 160 mg tablet TAKE 1 TABLET BY MOUTH TWICE DAILY 03/13 completed Not Available Not Available Not Available aspirin 81 mg tablet,yon yed release Take 1 tablet every day by oral route. active Not Available Not Available No t Available tramadol 50 mg tablet TK 1 T PO Q 6 H FOR 7 DAYS active Not Available Not Available No t Available triamcinolo ne acetonide 0.1 % topical cream APPLY THIN LAYER TOPICALLY TO THE AFFECTED AREA TWICE DAILY FOR 14 DAYS 08/16 completed Not Available Not Available Not Available ketorolac 10 mg tablet TK 1 T PO Q 4 H PRN 11/04 completed Not Available Not Available Not Available ketorolac 0.5 % eye drops INSTILL 1 DROP INTO RIGHT EYE 4 TIMES DAILY STARTING AFTER SURGERY AND CONTINUE FOR 4 WEEKS active Not Available Not Available No t Available Kenalog 40 mg/mL suspension for injection Take 1 mL by injection route. 07/16 completed Not Available Not Available Not Available meloxicam 7.5 mg tablet TK 1 T PO BID FOR 15 DAYS 07/16 completed Not Available Not Available Not Available alprazolam 0.5 mg tablet TAKE 1 TABLET BY MOUTH EVERY DAY NEEDED active Not Available Not Available No t Available alprazolam 0.25 mg tablet Take 1 tablet 3 times a day by oral route as needed. 08/21 completed Not Available Not Available Not Available famotidine 20 mg tablet TAKE 1 TABLET BY MOUTH EVERY 12 HOURS FOR 5 DAYS active Not Available Not Available No t Available benzonatate 100 mg capsule TAKE 2 CAPSULES BY MOUTH THREE TIMES DAILY NEEDED 09/16 completed Not Available Not Available Not Available pantoprazol e 40 mg tablet,yon yed release TAKE 1 TABLET BY MOUTH EVERY DAY active Not Available Not Available No t Available nortriptyli ne 10 mg capsule 12/29 completed Not Available Not Available Not Available triamcinolo ne acetonide 0.1 % topical ointment APPLY TOPICALLY TO THE AFFECTED AREA EVERY 12 HOURS NEEDED active Not Available Not Available No t Available lisinopril 10 mg tablet TAKE 1 TABLET BY MOUTH EVERY DAY 07/25 completed Not Available Not Available Not Available Refresh Classic (PF) 1.4 %-0.6 % eye drops in a dropperette active Not Available Not Available Not Available hydrochloro thiazide 12.5 mg capsule TAKE 1 CAPSULE BY MOUTH EVERY DAY 11/26 completed Not Available Not Available Not Available omeprazole 20 mg capsule,del ayed release TK ONE C PO D 11/04 completed Not Available Not Available Not Available diclofenac sodium 75 mg tablet,yon yed release TAKE 1 TABLET BY MOUTH TWICE DAILY 09/16 completed Not Available Not Available Not Available ergocalcife rol (vitamin D2) 1,250 mcg (50,000 unit) capsule TAKE 1 CAPSULE BY MOUTH ONE TIME PER WEEK FOR 90 DAYS 12/15 completed Not Available Not Available Not Available methylpredn isolone 4 mg tablets in a dose pack TAKE 6 TABLETS ON DAY 1 DIRECTED ON PACKAGE AND DECREASE BY 1 TAB EACH DAY FOR A TOTAL OF 6 DAYS active Not Available Not Available No t Available albuterol sulfate HFA 90 mcg/actuati on aerosol inhaler Inhale 2 puffs every 4 hours by inhalatio n route as needed. active Not Available Not Available No t Available losartan 100 mg tablet TAKE 1 TABLET BY MOUTH EVERY DAY active Not Available Not Available No t Available fluticasone propionate 50 mcg/actuati on nasal spray,suspe nsion ONE SPRAY IN EACH NOSTRIL EVERY NIGHT BEFORE BED. active Not Available Not Available No t Available sertraline 50 mg tablet TAKE 1 TABLET BY MOUTH EVERY DAY active Not Available Not Available No t Available atenolol 50 mg tablet TAKE 1 TABLET BY MOUTH EVERY DAY active Not Available Not Available No t Available naproxen 500 mg tablet TAKE 1 TAB BY MOUTH TWICE DAILY WITH MEALS 05/17 completed Not Available Not Available Not Available amoxicillin 875 mg-potassiu m clavulanate 125 mg tablet TAKE 1 TABLET BY MOUTH TWICE DAILY FOR 10 DAYS 06/13 completed Not Available Not Available Not Available escitalopra m 10 mg tablet START 1/2 TAB DAILY X 1 WEEK THEN INCREASE TO WHOLE TAB DAILY 05/16 completed Not Available Not Available Not Available duloxetine 30 mg capsule,del ayed release TK 1 C PO QD active Not Available Not Available No t Available diclofenac 1 % topical gel APPLY AA OF SKIN TID PRN FOR 10 DAYS 11/04 completed Not Available Not Available Not Available loteprednol etabonate 0.5 % eye gel drops INSTILL 1 DROP INTO RIGHT EYE TWICE DAILY STARTING 4 HOURS AFTER SURGERY AND CONTINUE FOR 4 WEEKS active Not Available Not Available No t Available Anoro Ellipta 62.5 mcg-25 mcg/actuati on powder for inhalation INHALE 1 PUFF BY MOUTH EVERY DAY 08/16 completed Not Available Not Available Not Available Kuldeep Aerosphere 160 mcg-9mcg-4. 8mcg/actuat ion HFA aerosol inhaler INHALE 2 PUFFS TWICE A DAY active Not Available Not Available No t Available Sutab 1.479-0.188 -0.225 gram tablet DIRECTED 07/24 completed Not Available Not Available Not Available Paxlovid 300 mg (150 mg x 2)-100 mg tablets in a dose pack TK 2 NIRMATREL VIR TS AND 1 RITONAVIR T TOGETHER PO BID FOR 5 DAYS TWICE DAILY FOR 5 DAYS 12/29 completed Not Available Not Available Not Available Vitals Date Recorded Body height Body mass index (BMI) Body weight Body temperature Heart rate Oxygen saturation Oxygen saturation in Arterial blood by Pulse oximetry Systolic blood pressure Diastolic blood pressure Provider Name and Address Organization Details Last Updated DateTime 5 163.83 cm 25.6 kg/m2 13323.5 5 g 97.5 [degF] 73 /min 98 % 98 % 180 mm[Hg] 92 mm[Hg] Christine Sena [facility] 5 14:22:29 Date Recorded Body height Body mass index (BMI) Body weight Body temperature Heart rate Oxygen saturation Oxygen saturation in Arterial blood by Pulse oximetry Systolic blood pressure Diastolic blood pressure Provider Name and Address Organization Details Last Updated DateTime 5 163.83 cm 24.5 kg/m2 17155.8 9 g 97.7 [degF] 85 /min 96 % 96 % 130 mm[Hg] 84 mm[Hg] Brooklyn Loera [facility] 5 15:06:55 Date Recorded Body height Body temperature Respiratory rate Oxygen saturation Oxygen saturation in Arterial blood by Pulse oximetry Heart rate Systolic blood pressure Diastolic blood pressure Provider Name and Address Organization Details Last Updated DateTime 5 163.83 cm 97.1 [degF] 17 /min 97 % 97 % 70 /min 160 mm[Hg] 90 mm[Hg] Kerry Haq LPN [facility] 5 16:00:20 Date Recorded Body mass index (BMI) Body weight Provider Name and Address Organization Details Last Updated DateTime 08/10/2024 25.2 kg/m2 55338.26 g Danielle Emanuel [facility] 08/10/2024 15:46:56 Date Recorded Body height Body mass index (BMI) Body weight Body temperature Heart rate Oxygen saturation Oxygen saturation in Arterial blood by Pulse oximetry Systolic blood pressure Diastolic blood pressure Provider Name and Address Organization Details Last Updated DateTime 163.83 cm 25 kg/m2 74814.6 7 g 97.6 [degF] 79 /min 95 % 95 % 160 mm[Hg] 90 mm[Hg] Desiree Matthews [facility] 14:28:03 Date Recorded Body height Body temperature Heart rate Oxygen saturation Oxygen saturation in Arterial blood by Pulse oximetry Systolic blood pressure Diastolic blood pressure Provider Name and Address Organization Details Last Updated DateTime 163.83 cm 97.7 [degF] 74 /min 97 % 97 % 154 mm[Hg] 88 mm[Hg] Martina Ana [facility] 12:17:36 Social History Question Answer Notes LastModified by Organization Details LastModified Time Tobacco Smoking Status Current Some Day Smoker states a [facility] 11:57:27 Do You Have An Advance Directive? No [id number] Information not available 04/20/2022 What Is Your Level Of Caffeine Consumption? Occasional MIGRATION.010 [id number] Information not available 04/20/2022 In The 14 Days Before Symptom Onset, Have You Had Close Contact With A Laboratory-confi rmed COVID-19 While That Case Was Ill? No MIGRATION.010 [id number] Information not available 04/20/2022 In The 14 Days Before Symptom Onset, Have You Had Close Contact With A Person Who Is Under Investigation For COVID-19 While That Person Was Ill? No MIGRATION.010 [id number] Information not available 04/20/2022 What Type Of Diet Are You Following? REGULAR MIGRATION.0107 [id number] Information not available 04/20/2022 What Is The Fluoride Status Of Your Home? Unknown Information not available 2024 Do You Use Insect Repellent Routinely? Yes Information not available 2024 Where Do You Live? SingleLevelHouse [email or web address] Information not available 08/10/2024 Are You In An Abusive/frighten ing Relationship? No MIGRATION.0107 [id number] Information not available 04/20/2022 Do You Feel Safe At Home Yes MIGRATION.0107 [id number] Information not available 04/20/2022 Do You Have A Plan To Hurt Yourself Or Others? No MIGRATION.0108 [id number] Information not available 04/20/2022 Do You Feel Hopeless Or Helpless? No MIGRATION.0108 [id number] Information not available 04/20/2022 What Was The Date Of Your Most Recent Tobacco Screening? 2024 Information not available 2024 What Is Your Current Pack Years? [email or web address] MIGRATION.0107 [id number] Information not available 04/20/2022 Have You Ever Been Counseled For Unhealthy Alcohol Use? Yes Information not available 2024 What Is Your Relationship Status? MIGRATION.0107 [id number] Information not available 04/20/2022 Do You Have Smoke And Carbon Monoxide Detectors In Your Home? Yes Information not available 2024 At What Age Did You Start Smoking Tobacco? 38 [email or web address] Information not available 08/10/2024 Are You Passively Exposed To Smoke? Yes Information not available 2024 Are There Any Smokers In Your House? Yes Information not available 2024 How Much Tobacco Do You Smoke? 0.25 PPD [email or web address] Information not available 08/17/2023 Do You Participate In Social Media? Yes Information not available 2024 Do You Use Sunscreen Routinely? Yes Information not available 2024 Has Tobacco Cessation Counseling Been Provided? Yes Information not available 08/17/2023 On What Date Was Tobacco Cessation Counseling Provided? 2024 Information not available 2024 How Many Years Have You Smoked Tobacco? 20 Information not available 08/10/2024 Have You Recently Traveled Abroad? No MIGRATION.0107 [id number] Information not available 04/20/2022 Do You Have Difficulty Walking Or Climbing Stairs? No MIGRATION.0108 [id number] Information not available 04/20/2022 Are You Currently In School? No MIGRATION.0107 [id number] Information not available 04/20/2022 Do You Have Any Dietary Restrictions? No MIGRATION.0107 [id number] Information not available 04/20/2022 How Many Days In The Past Year Have You Consumed 4 Or More Drinks? 20 Information not available 2024 Sex: Female Functional Status Question Answer Note LastModified by Organizat ion Details LastModified Time Do you use any illicit or recreational drugs? No Information not available 2024 Do you or have you ever used any other forms of tobacco or nicotine? Yes vape [email or web address] Information not available 08/17/2023 What is your level of alcohol consumption? Occasional MIGRATION.[id number] Information not available 04/20/2022 Do you or have you ever used smokeless tobacco? Never used smokeless tobacco Information not available 08/17/2023 Are you currently employed? 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 Never used electronic cigarettes Information not available 08/17/2023 What is your exercise level? None [id number] Information not available 04/20/2022 Mental Status Question Answer Note LastModified by Organizat ion Details LastModified Time Do you feel stressed (tense, restless, nervous, or anxious, or unable to sleep at night)? [id number] [email or web address] Information not available 08/17/2023 Do you have difficulty concentrating, remembering or making decisions? No [id number] 01 Information not available 04/20/2022 Family History Relationship Description Onset Age of this Age Resolved Age Notes LastModified by Organization Details LastModified Time Father Hypertensive disorder MIGRATION.485 [id number] Not available 04/20/2022 02:24:13 Father Dementia MIGRATION.907 [id number] Not available 04/20/2022 02:24:13 Father Pulmonary emphysema MIGRATION.782 [id number] Not available 04/20/2022 02:24:13 Father Pneumonia 86 MIGRATION.324 [id number] Not available 04/20/2022 23:40:53 Mother Hypertensive disorder MIGRATION.887 [id number] Not available 04/20/2022 02:24:14 Mother Heart disease MIGRATION.848 [id number] Not available 04/20/2022 02:24:14 Brother Malignant tumor of kidney MIGRATION.473 [id number] Not available 04/20/2022 02:24:14 Brother Mesothelioma (malignant, clinical disorder) MIGRATION.887 [id number] Not available 04/20/2022 02:24:14 Brother Malignant tumor of kidney MIGRATION.448 [id number] Not available 04/20/2022 18:59:26 Brother Mesothelioma (malignant, clinical disorder) MIGRATION.339 [id number] Not available 04/20/2022 18:59:26 Brother Malignant tumor of kidney MIGRATION.170 [id number] Not available 04/20/2022 23:40:53 Brother Mesothelioma (malignant, clinical disorder) MIGRATION.014 [id number] Not available 04/20/2022 23:40:53 Medical History Condition Response INSOMNIA Y COPD Y DEPRESSION (INCLUDING POST ) Y GERD/NAUSEA Y ARTHRITIS Y SLEEP DISORDER Y HYPERTENSION Y ANXIETY DISORDER Y Gynecological History Statement/Question Response Date of Last Pap Current Control Method Hysterectom y Date of Last Colonoscopy Date of Last Mammogram 02/17/2023 Most Recent Bone Density 08/24/2023 Obstetrics History GPAL:G 0 P 0 0 0 0 Immunizations Vaccine Type Date Status Note Provider Nam e and Address Organization Details Recorded Time Pneumococcal conjugate PCV20, polysaccharide QJE150 conjugate, adjuvant, PF 4 completed Lara Cantu, JERRY [address] [facility] [address], [place], [address], [facility] 08/17/2023 12:32:47 Influenza, high-dose, trivalent, PF 4 completed Brooklyn Loera [facility] 02/08/2024 17:21:23 Influenza, split virus, quadrivalent, PF 9 completed Not Available [facility] 04/20/2022 02:27:03 Hep A, adult 4 completed Desiree Matthews null, [facility] 10/02/2023 15:47:41 Hep A, unspecified formulation 5 completed Janiya nguyen, [facility] 05/17/2024 11:22:57 Past Encounters Encounter ID Performer Location Encounter Start Date Encounter Closed Date Diagnosis/Indication Diagnosis SNOMED-CT Code Diagnosis ICD10 Code Diagnosis Note [id number] _ATHN_MIGR ATION_5 _ATHENA_M IGRATION_ DEFAULT_1 _5 , 08/02/2020 00:00:00 08/02/2020 19:05:33 [id number] _ATHN_MIGR ATION_5 _ATHENA_M IGRATION_ DEFAULT_1 _5 , 09/16/2021 00:00:00 09/16/2021 20:18:29 [id number] _ATHN_MIGR ATION_5 _ATHENA_M IGRATION_ DEFAULT_1 _5 , 09/30/2021 00:00:00 09/30/2021 15:57:26 [id number] _ATHN_MIGR ATION_5 _ATHENA_M IGRATION_ DEFAULT_1 _5 , 10/15/2021 00:00:00 10/15/2021 21:42:23 [id number] _ATHN_MIGR ATION_5 _ATHENA_M IGRATION_ DEFAULT_1 _5 , 11/11/2021 00:00:00 11/11/2021 17:11:02 [id number] _ATHN_MIGR ATION_5 _ATHENA_M IGRATION_ DEFAULT_1 _5 , 11/26/2021 00:00:00 11/26/2021 11:51:21 [id number] _ATHN_MIGR ATION_5 _ATHENA_M IGRATION_ DEFAULT_1 _5 , 12/10/2021 00:00:00 12/10/2021 11:14:55 [id number] _ATHN_MIGR ATION_5 _ATHENA_M IGRATION_ DEFAULT_1 _5 , 12/30/2021 00:00:00 12/30/2021 14:09:47 [id number] Bridgette Verduzco MD DIR_[address] [address] 08/21/2020 00:00:00 08/21/2020 14:29:42 [id number] BO RAMESH MD [facility] [address] [place] [address] 07/25/2022 11:16:24 07/25/2022 12:05:52 Cough 69426121 R05.9 Gave recommenda tions for OTC's for symptomati c relief. Encouraged extra fluids and rest. Call if symptoms worsen or persist. COVID-19 668735123 U07.1 right AOM, no other red flags on exam.Home quarantine til 07/29/22. 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 Declined work note. Pain in throat 701054962 R07.0 Acute righ t otitis media 004476663 H66.91 Impacted c erumen in left ear 7380979722 787156 H61.22 Recommend using debrox OTC first & call office for ear wash if symptoms persist. [id number] BO RAMESH MD [facility] [address] [place] [address] 12/29/2022 14:13:07 12/29/2022 15:01:26 Adult health examination 497064134 Z00.01 Will order screening labs. F/U in 1 year for wellness. Screening for malignant neoplasm of colon 148208780 Z12.11 Refuses all screenings despite recommenda tion. Screening mammography of bilateral breasts 4949007490 12482 Z12.31 Will order mammogram. HIV screening 971670505 Z11.4 Will order screening labs. Smoker 28521300 F17.210 Encouraged smoking cessation. Will send for LDCT of chest-she wishes to do at same time as mammogram. Essential hypertension 40978560 I10 BP 142/84. Patient's BP is at goal on current meds. Continue current meds. Will refill as needed. Patient to continue a low sodium, heart healthy diet. Advised to exercise at minimum 30 minutes three to five times per week but preferably daily. Advised to avoid use of tobacco products. Chronic depression 28159 0009 F32.A Denies SI/HI. Doing well at this time. Anxiety 08844086 F41.9 Denies SI/HI. Doing well at this time. Rare use of PRN meds. Insomnia 152051378 G47.0 0 Sleeping well. No concerns today. Advised good sleep habits and patterns to include: 1. Setting a goal for at least 7 to 8 hours of sleep time per day. 2. Using the bed mainly for sleep and to go to bed only when tired. If unable to fall asleep after 30 minutes, patient should get out of bed but should not engage in any activity that requires sustained mental alertness. 3. Maintainin g a regular bedtime and wake-up time even on weekends or days off of work. 4. Avoiding excessive naps during the daytime. If a nap is necessary, limit it to no more than 30minutes. 5. Minimizing environmen nikki noise, bright lights, and extremes in bedroom temperatur e. 6. Avoiding alcohol, caffeinate d beverages, and nicotine products for at least 6 hours prior to bedtime. 7. Avoiding strenuous exercise and large meals for at least 4 hours prior to bedtime. Vitamin D deficiency 347 99574 E55.9 Due for labs, will order. Fatigue 42037347 R53.83 On going for years-[facility] k labs as ordered. Contact dermatitis 91735 004 L25.9 Unknown etiology.D iscussed cool oatmeal showers/ba ths, avoiding heat. Only use mild, unscented products. Avoid scratching . Continue soothing lotions such as Calamine. OTC Benadryl or Zyrtec PRN for itching. Also may use cool compresses .Discussed medication s as directed and potential adverse effects. Discussed common irritants and avoidance. Follow up with PCP in 3-5 days if no improvemen t. Follow up sooner or go to ER for any new or worsening symptoms. Patient agreed with plan. Counseled on and verbalized understand ing of plan and adverse effects. Body mass index 25-29 - overweight 905024565 Z68.25 BMI 25.6. Encouraged healthy diet and exercise. [id number] BO RAMESH MD [facility] [address] [address] 08/17/2023 11:47:00 08/17/2023 12:24:01 Essential hypertension 58434731 I10 BP 140/90. Looks like it was also elevated during her last OV in Mar with Roman. She has been running around all morning and just left work. Denies any concerning s/s. She is agreeable to check her BP at home for the next week and contact office with readings. She is med compliant. Patient to continue a low sodium, heart healthy diet. Advised to exercise at minimum 30 minutes three to five times per week but preferably daily. Advised to avoid use of tobacco products. Chronic ob structive pulmonary disease 02353107 J44.9 Per pt, Anoro did not help. Wants to go back on her PRN inhaler which she would take multiple times per day. Advised that her COPD would not be well managed on PRN inhaler only. Has changed insurance and will now cover Breztri. Will start maintenanc e therapy with Breztri as ordered. She will f/u if she continues to need her PRN inhaler multiple times per day/week. Encouraged smoking cessation. Anxiety 01914920 F41.9 Denies SI/HI. Doing well at this time. Rare use of PRN meds. Chronic depression 75799 0009 F32.A Denies SI/HI. Doing well at this time. Insomnia 108268065 G47.0 0 Sleeping well. No concerns today. Advised good sleep habits and patterns to include: 1. Setting a goal for at least 7 to 8 hours of sleep time per day. 2. Using the bed mainly for sleep and to go to bed only when tired. If unable to fall asleep after 30 minutes, patient should get out of bed but should not engage in any activity that requires sustained mental alertness. 3. Maintainin g a regular bedtime and wake-up time even on weekends or days off of work. 4. Avoiding excessive naps during the daytime. If a nap is necessary, limit it to no more than 30minutes. 5. Minimizing environmen nikki noise, bright lights, and extremes in bedroom temperatur e. 6. Avoiding alcohol, caffeinate d beverages, and nicotine products for at least 6 hours prior to bedtime. 7. Avoiding strenuous exercise and large meals for at least 4 hours prior to bedtime. Vitamin D deficiency 347 36997 E55.9 Due for labs, will order. Smoker 49344578 F17.210 Encouraged smoking cessation. UTD on LDCT of chest. Postmenopausal state 764 09025 Z78.0 Will order bone density. Administra tion of pneumococcal vaccine 82705114 Z23 Prevnar 20 updated, pt tolerated well. Formication of skin 4036 50719 R20.2 On and off for a couple weeks. Bad episode on 08/05/23. Check labs and send for MRI of brain. Pt agreeable with POC. Educated on when it would be necessary to seek ER eval. Pain of ri ght shoulder joint [id number] 5577092 M25.511 Will send for x-ray to further eval. Pt agreeable with POC. Screening for malignant neoplasm of colon 288067389 Z12.11 Refuses all screenings despite recommenda tion. Body mass index 25-29 - overweight 466970102 Z68.26 BMI 26.6. Encouraged healthy diet and exercise. [id number] BO RAMESH MD [facility]PA [address] [address] 03/13/2023 09:06:40 03/13/2023 10:12:08 Electrocardiogram abnormal 331701612 R94.31 Compared to ECG 04/15/2019 13:21:03 Left ventricula r hypertroph y now present Early repolariza tion now present ST (T wave) deviation no longer present Possible ischemia no longer present Referring to Cardio for further workup. Gastroesop hageal reflux disease without esophagitis 853284546 K21.9 Started on PPI during her hospital stay. Has had no recurrent symptoms. GERD diet reviewed at length, avoid triggers. Take medication s daily as Rx. Elevate head at bedtime prn. Reviewed risk vs benefits of chronic PPI use including but not limited to: increased risk for osteoporos is/fx, dementia, kidney disease, and C diff infections . Notify if sx worsen or change-may need to have further evaluation by GI. Chest pain 71001003 R07. 9 See above. No symptoms since hospital visit. [id number] Roman LAND [facility] Cardiolog y [address] [address] 03/23/2023 11:37:48 03/23/2023 13:43:19 Electrocardiogram abnormal 705275472 R94.31 Resting ECG reveals sinus rhythm with left ventricula r hypertroph y with repolariza tion abnormalit y. Will obtain her recent ECG from [facility] along with her myocardial perfusion imaging study to further assess and compare. No previous ECG can be found in the system for comparison . She reports being told over 20 years ago she had a heart attack, however, does not reveal any work up being done at the time. Her recent symptoms were isolated to one occasion. She denies any recurrence of symptoms. Echo will rule out wall motion abnormalit ies, valve abnormalit ies and LVH. Chest pain 99078044 R07. 9 Her chest discomfort was atypical given its onset suddenly at rest. Fortunatel y, she sought treatment and was evaluated in ER and subsequent ly admitted overnight to [facility]. I suspect her enzymes ruled out leading to her stress test that was non-ischem ic, leading to her ultimate discharge without cardiac cath. Records are being retrieved as I write this and will be reviewed in detail. Dyspnea on exertion 6084 5006 R06.09 Recent LDCT was negative and did not reveal evidence of coronary calcificat ion. Family his tory of Cardiovascular disease 432111882 Z82.49 Mother developed CAD age 40's to 50's, Father with COPD, Brother with cancer and cirrhosis Essential hypertension 66181079 I10 Her BP is elevated today. She typically checks her BP at 7AM daily and notes favorable readings. I recommend she check her BP at various times of day, on different days, and write down her readings on a piece of paper to bring back to her next visit. Her ECG suggests LVH. Recommend echo to further assess. Intermitte nt palpitations 952113336 R00.2 Intermitte nt palpitatio ns with recurrent dizziness. Recommend a 3day Bardy monitor to rule out arrhythmia . Gastroesop hageal reflux disease 164847103 K21.9 Recently started on pantoprazo le 40mg daily post hospitaliz ation. [id number] BO RAMESH MD [facility] [address] [address] 09/28/2023 10:42:47 09/28/2023 11:32:58 Respiratory tract congestion and cough 457309747 R05.9 Acute exac erbation of chronic obstructive pulmonary disease 682930365 J44.1 Increased SOB and clear sputum production likely due to COPD exacerbati on. Begin medrol dose pack as directed. Begin Z pack as directed. Begin benzonatat e 200 mg TID as needed for cough suppressio n. May continue Acetaminop hen as needed. Drink plenty of fluids. Go to the ER if SOB worsens or you begin running a fever >100.4F. Call the clinic if diarrhea returns or worsens. May return to work 09/29. Advised patient to limit smoking as this could aggravate symptoms. [id number] BO RAMESH MD [facility] [address] [address] 12/16/2023 15:31:24 12/16/2023 15:50:00 Spasm of back muscles 514806642 M62.830 Educated on at home exercises/ care instructio ns including ice/heat to area, rest, stretches, OTC Ibuprofen and chiropract or if able. Will also treat with Maria Luz buchanan at listed below. Aware to not operate heavy equipment while taking the medicaton. F/U if symptoms do not improve. Gastroesop hageal reflux disease without esophagitis 381849808 K21.9 Requesting refill, will send. [id number] BO RAMESH MD [facility] [address] [address] 02/08/2024 15:53:00 02/08/2024 17:01:12 Adult health examination 720620114 Z00.00 Will order screening labs. F/U in 1 year for wellness. Screening for cardiovascular system disease 964376821 Z13.6 EKG completed. Continue following Cardio as directed. Screening for disorder 082592340 Z13.9 Risk assessment done 712 914314 Z76.89 Anxiety 85744122 F41.9 Denies SI/HI. Doing well at this time. Chronic depression 09167 0009 F32.A Denies SI/HI. Doing well at this time. Chronic ob structive pulmonary disease 00308925 J44.9 Doing well on current inhalers. Will refill PRN. Encouraged smoking cessation. Essential hypertension 47102932 I10 BP 142/84. Patient's BP is at goal on current meds. Continue current meds. Will refill as needed. Patient to continue a low sodium, heart healthy diet. Advised to exercise at minimum 30 minutes three to five times per week but preferably daily. Advised to avoid use of tobacco products. Insomnia 704596128 G47.0 0 Sleeping well. No concerns today. Advised good sleep habits and patterns to include: 1. Setting a goal for at least 7 to 8 hours of sleep time per day. 2. Using the bed mainly for sleep and to go to bed only when tired. If unable to fall asleep after 30 minutes, patient should get out of bed but should not engage in any activity that requires sustained mental alertness. 3. Maintainin g a regular bedtime and wake-up time even on weekends or days off of work. 4. Avoiding excessive naps during the daytime. If a nap is necessary, limit it to no more than 30minutes. 5. Minimizing environmen nikki noise, bright lights, and extremes in bedroom temperatur e. 6. Avoiding alcohol, caffeinate d beverages, and nicotine products for at least 6 hours prior to bedtime. 7. Avoiding strenuous exercise and large meals for at least 4 hours prior to bedtime. Osteoporosis 24827952 M8 1.0 UTD on Dexa.David nue meds as prescribed along [facility]. Vitamin D deficiency 347 17272 E55.9 Due for labs, will order. Smoker 55321062 F17.210 Encouraged smoking cessation. UTD on LDCT of chest. Administra tion of influenza vaccine 43053594 Z23 FLU vaccine updated, pt tolerated well. Prolapsed lumbar intervertebral disc 716655570 M51.26 Discussed recent MRI results with pt. Will move forward with Neurosurge on referral. She is able to return to work with lifting restrictio ns-will complete paperwork and fax over. Screening mammography of bilateral breasts 4293344520 47057 Z12.31 Will order mammogram. Body mass index 25-29 - overweight 808000106 Z68.25 BMI 25.8. Encouraged healthy diet and exercise. Screening for malignant neoplasm of colon 464503284 Z12.11 Refuses all screenings despite recommenda tion. Depression screening 171 379057 Z13.31 0 (for the PHQ-2), Finding: Negative. Gastroesop hageal reflux disease without esophagitis 047816774 K21.9 GERD diet reviewed at length, avoid triggers. Take medication s daily as Rx. Elevate head at bedtime prn. Reviewed risk vs benefits of chronic PPI use including but not limited to: increased risk for osteoporos is/fx, dementia, kidney disease, and C diff infections . Notify if sx worsen or change-may need to have further evaluation by GI. Left ventr icular diastolic dysfunction 745321780 I51.9 Continue following Cardio as directed. [id number] MD BLAIR LANGFORD_RB [address] [address] 02/01/2024 10:47:13 02/01/2024 12:56:46 Lumbar radiculopathy 160745155 M54.16 Nothing concerning noted upon exam. Limited ROM due to pain. Send for stat MRI and PT as ordered below. Provide short course of PRN Hydrocodon e-aware to not drive while taking medication . Continue off work until MRI results known. Possible Neurosurge on referral. Pt agreeable with POC. Essential hypertension 35325745 I10 BP 164/92 Looks like it was also elevated during her last few OV's but they were acute visits. Denies any concerning s/s. She is agreeable to check her BP at home for the next week and contact office with readings. She is med compliant. Patient to continue a low sodium, heart healthy diet. Advised to exercise at minimum 30 minutes three to five times per week but preferably daily. Advised to avoid use of tobacco products. [id number] MARTIN LUQUE MD DIPStephany_[facility] [address] [address] 2024 14:20:56 2024 14:57:31 Chronic obstructive pulmonary disease 37984555 J44.9 Rare use of PRN inhaler. Continue Breztri as prescribed . Encouraged smoking cessation. Gastroesop hageal reflux disease without esophagitis 487754984 K21.9 GERD diet reviewed at length, avoid triggers. Take medication s daily as Rx. Elevate head at bedtime prn. Reviewed risk vs benefits of chronic PPI use including but not limited to: increased risk for osteoporos is/fx, dementia, kidney disease, and C diff infections . Notify if sx worsen or change-may need to have further evaluation by GI. Left ventr icular diastolic dysfunction 065363207 I51.9 Continue following Cardio as directed. Small vess el cerebrovascular disease 633557659 I67.9 Continue following Cardio as directed. Osteoporosis 84937865 M8 1.0 UTD on Dexa.David nue meds as prescribed along with calcium and vit d supplement s.Encour ed smoking cessation. Chronic depression 36050 0009 F32.A Denies SI/HI. Doing well at this time. Insomnia 240823705 G47.0 0 Sleeping well. No concerns today. Advised good sleep habits and patterns to include: 1. Setting a goal for at least 7 to 8 hours of sleep time per day. 2. Using the bed mainly for sleep and to go to bed only when tired. If unable to fall asleep after 30 minutes, patient should get out of bed but should not engage in any activity that requires sustained mental alertness. 3. Maintainin g a regular bedtime and wake-up time even on weekends or days off of work. 4. Avoiding excessive naps during the daytime. If a nap is necessary, limit it to no more than 30minutes. 5. Minimizing environmen nikki noise, bright lights, and extremes in bedroom temperatur e. 6. Avoiding alcohol, caffeinate d beverages, and nicotine products for at least 6 hours prior to bedtime. 7. Avoiding strenuous exercise and large meals for at least 4 hours prior to bedtime. Vitamin D deficiency 347 64265 E55.9 Due for labs, will order. Anxiety 35952257 F41.9 Denies SI/HI. Doing well at this time. No concerns today. Essential hypertension 48985729 I10 BP 160/90. Recent dose adjustment in BP meds with Roman. RTO in 2 weeks for nurse visit BP check. Denies any concerning s/s. Patient to continue a low sodium, heart healthy diet. Advised to exercise at minimum 30 minutes three to five times per week but preferably daily. Advised to avoid use of tobacco products. Smoker 65300065 F17.200 Encouraged smoking cessation. Due for LDCT of chest, will order. Mixed hyperlipidemia 267 636874 E78.2 Encouraged to follow low cholestero l diet-revie wed at length with pt. Encouraged physical activity. Notify any CP, SOB, or changes. Check labs. Roman ordered FLP. Renal mass 209838915 N28 .89 Likely cyst related. Noted on MRI back in January. Did not complete renal US, will reorder. Screening mammography 24 584281 Z12.31 Will order mammogram. Screening for malignant neoplasm of colon 769952460 Z12.11 Refuses all screenings despite recommenda tion. Disorder o f left sciatic nerve 3224393575 87452 M54.32 Educated on at home exercises/ care instructio ns including ice/heat to area, rest, stretches, OTC Ibuprofen and chiropract or if able. Will also treat with Methocarba mol at listed below. Aware to not operate heavy equipment while taking the medicaton. F/U if symptoms do not improve. Depression screening 171 815288 Z13.31 0 (for the PHQ-2), Finding: Negative. Overweight in adulthood with body mass index of 25 or more but less than 30 163479710 Z68.25 BMI 25.0. Encouraged healthy diet and exercise. [id number] MD BLAIR LANGFORD_RB [address] [address] 04/11/2024 13:53:26 04/11/2024 14:25:08 Fever 025503094 R50.9 Rapid COVID, FLU and RSV negative-s ee above. Cough 63856626 R05.9 On going for 2 months now per pt. Current smoker. Send for chest x-ray to further eval. Pt agreeable with POC. [id number] MD BLAIR LANGFORD_RB [address] [address] 05/10/2024 14:04:47 05/10/2024 14:27:24 Essential hypertension 44234380 I10 [id number] MD BLAIR LANGFORD_RB [address] [address] 05/17/2024 14:14:32 05/17/2024 14:39:27 Anxiety 52737924 F41.9 BIANKA-7 (10/31).Den ies SI/HI. Not doing well at this time. Has a lot of stress in her home. A lot of her grandchild kati live with her. PRN meds are effective- rare use. Start tx with Sertraline as ordered below. Discussed side effects of antidepres sants such as decreased reaction time, clouded judgment, drowsiness , GI upset, weight gain, sleep disturbanc e, sexual dysfunctio n, serotonin syndrome, anticholin ergic effects, withdrawal with abrupt discontinu ation of medication , and suicidal thoughts. Patient has agreed to notify me immediatel y if they develop any of these symptoms. Education provided about the possible danger associated with the use of antidepres sants while operating heavy equipment or driving. The patient has agreed not to drive or operate heavy machinery if there is a developmen t of any of these symptoms. Education provided to patient regarding mixing of this medication with other substances including alcohol which may make side effects worsen. Patient has verbalized understand ing of the instructio ns and has agreed to proceed with treatment. I will see her back in 6 weeks, sooner if needed. Essential hypertension 58586673 I10 BP 180/92. Started on Losartan 50 mg daily 3 days ago. She has f/u with Cardio in a few weeks. Denies any concerning s/s at this time. I think the stress in her life does not help. Will follow closely. Depression screening 171 835174 Z13.31 9 (for the PHQ-9). Mild-watch ful waiting. [id number] BO RAMESH MD [facility] [address] [address] 06/13/2024 14:48:36 06/13/2024 15:16:13 Acute bronchitis 43210365 J20.9 DC'd home with Augmentin and Azithromyc in. She has completed all meds and feels great. Encouraged smoking cessation. Pneumonia 350545612 J18. 9 DC'd home with Augmentin and Azithromyc in. She has completed all meds and feels great. Essential hypertension 22915173 I10 BP 130/84. Great improvemen t since last OV. F/U with Cardio as directed. [id number] Roman [facility] Cardiolog y [address] [address] 08/10/2024 15:10:56 08/10/2024 16:41:34 Essential hypertension 86193564 I10 Her BP is elevated again today. Meds were reviewed. I recommend increasing losartan to 100mg daily and continuing the atenolol 50mg daily. Her echo did not suggest evidence of LVH. She will continue home monitoring her BP at home and report persistent abnormal readings. She has a follow up soon with Lara. We will regroup in November to discuss her regimen and readings. Intermitte nt palpitations 237929222 R00.2 Intermitte nt palpitatio ns have resolved. Her previous holter was reviewed. No concerning arrhythmia s. Dyspnea on exertion 6084 5006 R06.09 Previous LDCT was negative and did not reveal evidence of coronary calcificat ion. Family his tory of Cardiovascular disease 198058505 Z82.49 Mother developed CAD age 40's to 50's, Father with COPD, Brother with cancer and cirrhosis. Anticipate repeat MPI study at some point. Gastroesop hageal reflux disease 715160241 K21.9 Stable on pantoprazo le 40mg daily. Smoker 63094205 F17.200 Discussed benefits of quitting smoking. Cessation was encouraged . Overweight in adulthood with body mass index of 25 or more but less than 30 308737140 Z68.25 Bmi 25 Recommende d weight loss to achieve & maintain WNL BMI by focusing on increasing water intake, exercise regularly, limit fatty, fried, salty/sodi um, & processed foods, increase intake of fresh produce, f/u with pcp. Mixed hyperlipidemia 267 981372 E78.2 Her LDL was previously elevated. She is managed with dietary discretion . Recommend follow up liver and lipid panel. She is seeing Lara soon. I suggested she wait until after that appointmen t as Lara would likely add to her lab orders, and she could have them all drawn at once. [id number] MARTIN LUQUE MD [facility] [address] [address] 08/31/2024 11:54:09 08/31/2024 12:21:56 Essential hypertension 63461298 I10 Health Concerns Section Related Observation LastModified by Organization Derrick ls LastModified Time None Recorded Concern Status LastModified by Organization Details LastModified Time None Recorded Advance Directives Directive N: Payers Insurance Date Sequence Insurance Name Policy Number Policy Florence Covered Member ID Florence Member ID Guarantor Name 04/11/2024 1 [facility] - DOS ON OR AFTER 20 (MEDICAID REPLACEMENT - HMO) Irene Cason [id number] Irene Cason 09/08/2024 1 [employer] - PRIME (MEDICARE REPLACEMENT/AD VANTAGE - HMO) [id number] Irene Cason [id number] Irene Cason Notes Date Note Type Note Provider Name and Address Organization Details Recorded Time 05/17/2024 text/html 63 y/o female in office to discuss increased stress and anxiety. Reports having 9 other people that live with her, mostly her small grandchildren. Always stress in her house and at work. She is on edge all the time. She would like to start something daily to help with her anxiety. She does struggle with sleeping. Denies any SI/HI. Lara Cantu NP [address], [place], [address], [facility] 05/17/2024 15:35:53 06/13/2024 text/html 63 y/o female in office for recent ER f/u. Reports going to [facility] on 05/31/24 due to SOB. Was found to have Bronchitis and Pneumonia. DC'd home with Augmentin and Azithromycin. She has completed all meds and feels great. Would like to return back to work tomorrow. No concerns. Lara Cantu NP [address],[facility] [address], [place], [address], [facility] 06/13/2024 15:20:51 08/10/2024 text/html Irene is a very pleasant 63 y/o WF with history of HTN, hyperlipidemia, tobacco use, GERD and a family history of heart disease, who returns to the office today for annual visit and a scheduled echocardiogram. She feels well and denies chest pain, SOB, dizziness, pre-syncope, pedal edema or claudication symptoms. Roman LAND [address] [place], [address], [facility] 08/10/2024 16:31:18 2024 text/html 64 y/o female in office for her 6 month med management. She says that she is doing well. She is due for screening labs, mammogram, LDCT and colonoscopy. Refuses any colorectal screenings. She is up to date on dexa and no longer requires pap smears. Continues to be a smoker. Diet and exercise could be better. Aware to update vaccines at pharmacy/local health department based on her insurance. Her BP is elevated today. States that cardio made med changes during her last appt on 08/10/24. She does not monitor her BP at home. She is taking her medications as prescribed with no side effects. She denies symptoms of elevated BP including, but not limited to, headache, changes in vision and dizziness. Follows Cardio on a yearly basis. Reports issues with left lower back/buttock pain that started this past Thursday. No known injury. Rather hard for her to get around barron while in bed. OTC Tylenol is not helping. Pain does radiate into her left hip and down her left leg. Denies any loss of bowel/bladder or saddle paresthesia. No other concerns today. Lara Cantu, JERRY [address], [place], [address], [facility] 2024 15:16:19 OBGyn Episode No OBEpisode recorded.
--- OUTSIDE RECORDS SUMMARY | 2024-09-08 23:54 | XMS_ITS | Clinical Summary ---
Author Organization [facility] Address [address] [place] [address] Phone Care Team Providers Care Eap Clinician Name Role Phone Unavailable Primary Care Provider Unavailabl e Allergies No known active allergies Medications ALPRAZolam (XANAX) 0.5 mg tablet Take 0.5 mg by mouth nightly as needed for Anxiety. Active umeclidinium-anahy anteroL (Anoro Ellipta) 62.5-25 mcg/actuation Disk with Device Take by inhalation. Active atenoloL (TENORMIN) 50 mg tablet Take 50 mg by mouth daily. Active acetaminophen (TYLENOL) 325 mg tablet Take 2 Tablets (650 mg) by mouth every 6 hours as needed for Other (See Comment) (See admin instructions ). 03/01/2023 Active pantoprazole (PROTONIX) 40 mg Tablet, Delayed Release (E.C.) Take 1 Tablet (40 mg) by mouth daily. 30 Tablet 03/01/2023 Active codeine-guaiFENe sin (ROBITUSSIN-AC) 10-100 mg/5 mL LiquidIndication s:Pneumonia due to infectious organism, unspecified laterality, unspecified part of lung Take 10 mL by mouth every 4 hours as needed for Cough. 120 mL 05/31/2024 Active Active Problems Problem Noted Date Diagnosed Date Chest pain 02/28/2023 Shortness of breath 02/28/2023 COPD (chronic obstructive pulmonary disease) Depressive disorder 05/16/2019 Essential hypertension 11/04/2018 Anxiety 11/04/2018 Heart murmur 11/04/2018 Nicotine dependence 11/04/2018 Encounters Date Type Department Care Team Description 08/31/2024 External Device Data [facility] Provider, Abstract 08/31/2024 External Device Data [facility] Provider, Abstract 08/30/2024 External Device Data [facility] Provider, Abstract 07/26/2024 External Device Data [facility] Provider, Abstract 06/29/2024 External Device Data [facility] Provider, Abstract 06/28/2024 External Device Data [facility] Provider, Abstract from Last 3 Months Social History Tobacco Use Types Packs/Day Years Used Date Smoking Tobacco: Every Day Cigarettes Smokeless Tobacco: Never Tobacco Cessation:Ready to Q uit: Not Asked; Counseling Given: Not Answered Alcohol Use Standard Drinks/Week Comments Yes 0 (1 standard drink = 0.6 oz pur e alcohol) Feeling Safe Answer Date Recorded Are you in a relationship wi th someone who hurts you emotionally and/or physically? No 05/31/2024 Food Insecurity Answer Date Recorded Social/Environmental Concerns No concerns Transportation Needs Answer Date Record ed Social/Environmental Concerns No concerns Housing Stability Answer Date Recorded Social/Environmental Concerns No concerns Utility Needs Answer Date Recorded Social/Environmental Concerns No concerns Comments No Sex and Gender Information Value Date Recorded Sex Assigned at Not on file Legal Sex Female 10:14 PM CDT Gender Identity Not on file Sexual Orientation Not on file Last Filed Vital Signs Vital Sign Reading Time Taken Comments Blood Pressure 154/79 05/31/2024 4:35 PM OFFSET MACHINE OPERATOR Pulse 72 05/31/2024 2:50 PM OFFSET MACHINE OPERATOR Temperature 36.5 C (97.7 F) 05/31/2024 9:04 AM OFFSET MACHINE OPERATOR Respiratory Rate 18 05/31/2024 2:50 PM OFFSET MACHINE OPERATOR Oxygen Saturation 94% 05/31/2024 4:39 PM OFFSET MACHINE OPERATOR Inhaled Oxygen Concentration - - Weight 71.2 kg (157 lb) 05/31/2024 9:04 AM OFFSET MACHINE OPERATOR Height 162.6 cm (5' 4) 05/31/2024 9:04 AM OFFSET MACHINE OPERATOR Body Mass Index 26.95 05/31/2024 9:04 AM OFFSET MACHINE OPERATOR Plan of Treatment Health Maintenance Due Date Last Done Comments DTAP/TDAP/TD VACCINES (1 - Tdap) 1977 BREAST CANCER SCREENING 1998 COLORECTAL SCREENING 08/17/2003 Colorectal Cancer Screening 08/17/2003 FIT-DNA Q 3 years 08/17/2003 FIT/FOBT Q 1 year 08/17/2003 Flex Sig/CT Colonography Q 5 years 08/17/2003 ZOSTER VACCINE (1 of 2) 2008 RSV VACCINE (60+ or ) (1 - Risk 60-74 years 1-dose series) 2018 OSTEOPOROSIS SCREENING 08/17/2023 Pre-Diabetes and Diabetes Screening 02/28/202602/28 PNEUMOCOCCAL VACCINE 50+ YEARS Completed 08/17/2023 , 03/19/2010 INFLUENZA VACCINE Completed 02/08/2024, 01/17/2019 Procedures Procedure Name Priority Date/Time Associated Diagnosis Comments HEMOGLOBIN A1C Routine 02/28/2023 4:36 PM OFFSET MACHINE OPERATOR from Last 3 Months or Most Recently Relevant to Health Maintenance Results * HEMOGLOBIN A1C (02/28/2023 4:36 PM OFFSET MACHINE OPERATOR) HEMOGLOBIN A1C 5.4 <=5.6 % 02/28/2023 10:37 PM OFFSET MACHINE OPERATOR [facility] EST. AVG GLUCOSE, A1C 108 mg/dL 02/28/2023 10:37 PM OFFSET MACHINE OPERATOR [facility] [place] [facility] Blood Venipuncture / Unknown 02/28/2023 4:36 PM OFFSET MACHINE OPERATOR 02/28/2023 4:49 PM OFFSET MACHINE OPERATOR Narrative [facility] [place] [facility] - 02/28/2023 10:37 PM OFFSET MACHINE OPERATOR HGB A1C INTERPRETATION NORMAL: <5.7% PRE-DIABETES: 5.7 - 6.4% DIABETES: 6.5% OR GREATER [facility] Aleida Linda Cotton MD CHEMISTRY ORDERABLES F inal Result [facility] [place] [facility] CLIA# [id number] [place] [address] from Last 3 Months or Most Recently Relevant to Health Maintenance Insurance [employer] O MCR Advance Directives For more information, please contact: [phone] * Full Code (Latest Code Status on File) Date Activated Date Inactivated Comments 02/28/2023 8:47 PM 03/01/2023 2:08 PM
== END 2024-09-09 00:55 | disposition left against medical advice (07) ==
DX: R06.02 Shortness of breath (principal)
CPT/HCPCS: 99199